=== PATIENT | male | born 1980 | race Caucasian/White ===

== ENCOUNTER 2025-01-20 07:37 | Emergency (ER) | payer MEDICARE, MEDICAID ==
[~2025-01-20] VITALS: Ht 175.3 cm; Wt 91.3 kg
[2025-01-20 07:40] VITALS: TEMP 99.2
--- NOTE | 2025-01-20 08:14 | RADIOLOGY REPORT ---
PROCEDURE: Left 3rd digit radiographs. INDICATION: LEFT FINGER PAIN TECHNIQUE: 4 views of the left 3rd digit were obtained. COMPARISON: None FINDINGS: There is no evidence of fracture or dislocation. Joint spaces are maintained. Soft tissue swelling. IMPRESSION: 1. No fracture or dislocation. Soft tissue swelling in the 3rd digit particularly in the dorsal aspec t of the finger at the level of the proximal interphalangeal joint.
[2025-01-20] MEDS ORDERED: SULF1TAB49 PO (09:24)
--- NOTE | 2025-01-20 09:24 | Physician Documentation ---
History of Present Illness ~ Chief Complaint: Hand pain Stated Complaint: HAND PAIN Time Seen by MD: 08:57 HPI This is a 44-year-old male who presents with an area of pain and swelling to the posterior aspect of his left 3rd finger onset last night. Tetanus within 5 years: No Medication Reconciliation Allergies: Coded Allergies: No Known Allergies (Unverified , 01/20/25) Scheduled Sulfamethoxazole/Trimethoprim (Bactrim Ds Tablet), 1 TAB PO Q12H Past Medical History Past Medical History: No Pertinent History Review of Systems ROS Pain and swelling to left 3rd finger as stated above in the HPI, otherwise all systems are reviewed and negative. Physical Exam Vital Signs: Temperature: 99.2, Source: Temporal, Heart Rate: 85, Respiratory Rate: 15, BP: 115/80, Pulse Oximetry: 98, Weight: 91.300 Oxygen Flow Rate: 0 Physical Exam VITALS: Reviewed and as above. GENERAL: Alert, nontoxic appearing, no apparent distress. RESPIRATORY: No increased work of breathing, no respiratory distress, speaking in full clear sentences SKIN: Skin of posterior aspect of left finger approximately 1 cm round superficial appearing area of erythema with central area of spontaneous purulent drainage, no fusiform swelling of the digit Progress Results/Orders Results/Orders Completed Orders - ERIKA TEJEDA [employer] Ibuprofen Tablet (Motrin Tablet) (01/20/25 09:20) Tetanus/Pertuss/Diph Acell/Pf (Boostrix (01/20/25 09:20) Sulfamethox/Trimetho. Ds Tab (Septra Ds (01/20/25 09:20) Vital Signs 01/20/25 01/20/25 01/20/25 07:40 08:38 09:48 Temp 99.2 Pulse 98 85 85 Resp 18 15 16 B/P (MAP) 139/95 115/80 (92) 149/68 Pulse Ox 99 98 98 O2 Flow Rate 0 EKG/XRAY/CT/US/VASC/MRI Bone/Soft Tissue X-Ray (Ext.) : Additional Comment PROCEDURE: Left 3rd digit radiographs. INDICATION: LEFT FINGER PAIN TECHNIQUE: 4 views of the left 3rd digit were obtained. COMPARISON: None FINDINGS: There is no evidence of fracture or dislocation. Joint spaces are maintained. Soft tissue swelling. IMPRESSION: 1. No fracture or dislocation. Soft tissue swelling in the 3rd digit particularly in the dorsal aspect of the finger at the level of the proximal interphalangeal joint. Electronically Signed by:IVET MESA MD Date & Time: 01/20/25811 Dictated by: IVET MESA MD Dictation date and time: 01/20/25811 I have reviewed and agree with the radiology report. I have reviewed and interpreted the imaging as: No fracture or dislocation, no evidence of radiopaque retained foreign body Medical Decision Making Findings This 44-year-old male presented with a area of pain and swelling with spontaneous purulent drainage to the posterior aspect of his left 3rd finger I have onset last night, physical exam is consistent with furuncle, it was reassuring that it is limited to the posterior aspect of the finger and does not involve the flexor surface and there is no fusiform swelling make me suspicious for flexor tendon of synovitis. Patient is otherwise well-appearing, afebrile, and hemodynamically stable. Remainder of physical exam benign. Patient is appropriate for outpatient follow up. Patient placed on course of oral antibiotics. Patient provided home care instructions, return to care precautions, and follow up instructions which he verbalized understanding of. Finger Diff Dx:Considerations: Include: Abrasion, Cellulitis, Fracture, Laceration, Neurovascular injury, Subungual hematoma, Other (Retained foreign body) Departure Disposition: 01 HOME / SELF CARE / HOMELESS Impression: Primary Impression: Furuncle left hand Condition: Improved Discharge Instructions: Abscess, Care After Additional Instructions: Use warm soaks on the area two to 3 times a day and clean the area to aid in drainage of the wound. Please take antibiotics as prescribed. You may use ibuprofen and Tylenol as needed for pain as directed by [id number] packaging. Please follow up with your primary care provider the [facility] in the next few days. Please return to the emergency department for any new or worsening concerning symptoms including but not limited to worsening pain or swelling or if you develop a fever over 100.4 that does not lower with ibuprofen or Tylenol. Referrals: NO PRIMARY CARE PROVIDER (PCP) Prescriptions Sulfamethoxazole/Trimethoprim (Bactrim Ds Tablet) 800 Mg-160 Mg Tablet 1 TAB PO Q12H for 7 Days, #14 TAB Prov: ERIKA TEJEDAP 01/20/25 Education Educated: Patient Educated regarding: diagnosis, treatment, prognosis, need for follow up Signature Scribe Signature: No scribe Attestation: The note accurately reflects work and decisions made by me.TAMIKO Juárez 01/20/25 22:12 ERIKA TEJEDA Jan 20, 2025 09:24
[2025-01-20] MEDS: ibuprofen tablet 400 MG TABLET PO ONE (09:40)
[2025-01-20] MEDS: sulfamethoxazole/trimethoprim DS (800/160mg) tablet PO ONE (09:40)
[2025-01-20] MEDS: TETanus/Pertussis (Acell)/Diphther VAC/PF (Tdap-Adult) 0.5ml syringe IMVAC ONE (09:46)
[2025-01-20 09:48] VITALS: BP 149/68; PULSE 85; RESP 16; O2SAT 98
== END 2025-01-20 09:51 | disposition home or self-care (01) ==
LOC: ER 07:38
DX: L02.522 Furuncle left hand (principal)
CPT/HCPCS: 73140; 90715; 99283; G0008; 90471